=== PATIENT | female | born 1995 | race African-American/Black ===

== ENCOUNTER 2017-01-18 16:58 | Emergency (ER) | payer OTHER ==
[~2017-01-18] VITALS: Ht 165.1 cm; Wt 81.6 kg
[2017-01-18] MEDS ORDERED: ALBUTEROL SULF8.5 GM INH (17:10)
[2017-01-18] MEDS ORDERED: CEPHALEXIN500 MG ORAL (17:27)
[2017-01-18] MEDS ORDERED: IBUPROFEN400 MG ORAL (17:27)
[2017-01-18] MEDS ORDERED: Cephalexin 500mg cap ORAL ONE (17:30)
[2017-01-18 17:39] VITALS: BP 115/64
[2017-01-18 17:41] VITALS: BP 115/64
--- NOTE | 2017-01-18 21:02 | Emergency Room Report ---
History of Present Illness General Chief Complaint: General Complaint Source: Patient, Medical Record Present Illness HPI The patient is a 20-year-old female who denies any medical history presenting for right ankle pain and sore throat. The patient states that she was treated for an abscess of the right leg one month prior with incision and drainage and outpatient amoxicillin. The patient states that the infection completely resolved but seems to have now returned. The patient noticed redness and pain to the outside of the right ankle one week prior. Pain is described as a 10 out of 10 dull ache and does not radiate. Pain is worse with touch. The patient denies injury to the ankle. The patient also noticed a sore throat and cough which began yesterday. This pain is described as a 5/10 dull ache it is worse with coughing. Pain is nonradiating. The patient denies any sick contacts or recent travel. Patient denies any symptoms including N, V, F, chills, SOB, night sweats, numbness/tingling Allergies: Coded Allergies: No Known Allergies (Unverified , 06/27/12) Patient History Past Medical History: see triage record Pertinent Family History: none Last Menstrual Period: 01/16/2017 : 3 Para: 1 Reviewed Nursing Documentation: PMH: Agreed, PSxH: Agreed Nursing Documentation-PMH Hx Asthma: Yes Review of Systems All Other Systems: negative except mentioned in HPI Physical Exam Vital Signs Date Time Temp Pulse Resp B/P Pulse Ox O2 Delivery O2 Flow Rate FiO2 01/18/17 17:01 99.3 91 16 115/64 99 Sp02 EP Interpretation: reviewed, normal General Appearance: no apparent distress, alert, GCS 15, non-toxic Head: normocephalic, atraumatic Eyes: bilateral eye PERRL, bilateral eye normal inspection ENT: hearing grossly normal, no angioedema, normal voice, tonsillar swelling, pharyngeal erythema, tonsillar exudate Neck: full range of motion, supple/symm/no masses Musculoskeletal: back normal, gait/station normal, normal range of motion, no calf tenderness Neurologic: alert, oriented x3, responsive, motor strength/tone normal, sensory intact, speech normal Psychiatric: judgement/insight normal, memory normal, mood/affect normal, no suicidal/homicidal ideation Skin: normal turgor, rash - erythematous macular, other - erythema, TTP, and increased temperature to the lateral R ankle. Lymphatic: no adenopathy Medical Decision Making PA Attestation Dr. Joseph is my supervising physician. Patient management was discussed with my supervising physician Diagnostic Impression: Primary Impression: Cellulitis Additional Impression: Pharyngitis, acute ER Course The patient is a 20-year-old female who denies any medical history presenting for right ankle pain and sore throat Differential diagnosis include but not limited to pharyngitis, sinusitis, AOM, bronchitis, PNA Physical exam: Vitals within normal limits. Afebrile. No apparent distress HEENT exam: There is bilateral tonsillar edema, erythema, and exudate. Uvula midline. Moist mucous membranes. There is bilateral cervical lymphadenopathy. Lungs are clear to auscultation bilaterally Skin: erythema, TTP, and increased temperature to the lateral R ankle. The patient will be discharged home with a prescription for keflex and is given ER precautions. Patient will followup with primary care Last Vital Signs Date Time Temp Pulse Resp B/P Pulse Ox O2 Delivery O2 Flow Rate FiO2 01/18/17 17:41 99.4 72 16 115/64 99 Status: improved Disposition: HOME, SELF-CARE Condition: Improved Scripts Ibuprofen* (MOTRIN*) 400 Mg Tablet 400 MG ORAL Q6H, #30 TAB 0 Refills Prov: MULUGETA AYALA.A. 01/18/17 Cephalexin* (KEFLEX*) 500 Mg Capsule 500 MG ORAL EVERY 6 HOURS, #28 CAP Prov: MULUGETA AYALA P.A. 01/18/17 [facility],REFERR[facility] (PCP) Patient Instructions: Cellulitis, Pharyngitis Additional Instructions: I discussed my findings with the patient. All questions and concerns have been answered. Treatment and medication compliance have been addressed. I advised the patient that they need to follow up with PMD in 3-5 days. Return to ED if pain remains or worsens, cough worsens or remains, you notice blood in your sputum, you notice wheezing, you experience a fever, or if needed for any reason. Patient verbalized understanding of discharge instructions. MULUGETA AYALA Jan 18, 2017 21:02
== END 2017-01-18 17:46 | disposition home or self-care (01) ==
LOC: EMR 17:20
DX: L03.115 Cellulitis of right lower limb (principal); J02.9 Acute pharyngitis, unspecified; J45.909 Unspecified asthma, uncomplicated
CPT/HCPCS: 99284

== ENCOUNTER 2020-09-04 06:46 | Emergency (ER) | payer MEDICAID, OTHER ==
[~2020-09-04] VITALS: Ht 167.6 cm; Wt 79.4 kg
[~2020-09-04 06:46] MED LIST: ALBUTEROL SULF8.5 GM INH; CEPHALEXIN500 MG ORAL; IBUPROFEN400 MG ORAL
[2020-09-04 06:52] VITALS: BP 109/88
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
--- NOTE | 2020-09-04 07:37 | NUR ---
ED Nurse Note: xray at the bedside
[2020-09-04] MEDS ORDERED: ACETAMINOPHEN325 M1 ORAL (08:05)
[2020-09-04] MEDS ORDERED: IBUPROFEN400 MG ORAL (08:05)
--- NOTE | 2020-09-04 08:53 | Diagnostic Imaging Report ---
EXAM: XR Chest, 1 View CLINICAL HISTORY: PAIN TECHNIQUE: Frontal view of the chest. COMPARISON: No relevant prior studies available. FINDINGS: Lungs: Unremarkable. No consolidation. Pleural space: Unremarkable. No pneumothorax. Heart: Unremarkable. No cardiomegaly. Mediastinum: Unremarkable. Bones/joints: Unremarkable. IMPRESSION: Normal chest x-ray.
--- NOTE | 2020-09-04 08:54 | Diagnostic Imaging Report ---
EXAM: XR Right Clavicle Complete, 2 or More Views CLINICAL HISTORY: PAIN TECHNIQUE: Frontal and lordotic views of the right clavicle. COMPARISON: No relevant prior studies available. FINDINGS: Bones/joints: Unremarkable. No acute fracture. No dislocation. Soft tissues: Unremarkable. IMPRESSION: No right clavicle fracture.
[2020-09-04 09:00] VITALS: BP 112/78
--- NOTE | 2020-09-04 09:00 | NUR ---
ELOPEMENT: IMAN MADE AWARE OF THE PT. LEAVING AFTER HE SPOKE WITH THE PT. PT. LEFT WITH ALL HER BELONGINGS
== END 2020-09-04 09:00 | disposition left against medical advice (07) ==
LOC: EMR 07:03
DX: R07.9 Chest pain, unspecified (principal)
CPT/HCPCS: 71045; 73000; 81025; Z7502; 99284